=== PATIENT | male | born 1930 | race Caucasian/White ===

== ENCOUNTER 2018-02-24 21:44 | Inpatient (IN) | payer OTHER ==
[~2018-02-24] VITALS: Ht 160 cm; Wt 58.5 kg
[~2018-02-24 21:44] MED LIST: AMLODIPINE BESYL5 MG PO; APRESOLINE100 MG PO; BIOFREEZE TD; BUSPAR10 MG PO; CALCIUM 600 +1 EA11 PO; CLONIDINE HCL0.1 MG PO; CYANOCOBALAM1000 MCG PO; DULCOLAX10 MG PR; DUONEB 2.5-0.5 M3 ML AEROSOL; ELIQUIS5 MG PO; FERROUS SULFAT325 MG PO; FLEET MINERAL133 ML PR; FOLIC ACID1 MG PO; FUROSEMIDE20 MG PO; GLUCAGEN1 MG IM; GLUCOSE GEL15 GM PO; HUMULIN N100 UNITS/ SC; HUMULIN R100 UNITS/ SC; KLOR-CON M2020 MEQ PO; LORAZEPAM0.5 MG PO; METOPROLOL TART25 MG PO; MILK OF MAGN PO; MULTILEX1 EACH PO; OMEPRAZOLE20 MG PO; POTASSIUM CHLO10 ME4 PO; POTASSIUM CHLO20 MEQ PO; SYNTHROID112 MCG PO; TERAZOSIN HCL1 MG PO; THIAMINE HCL50 MG PO; TRAMADOL HCL50 MG PO; TRAZODONE HCL50 MG PO; TYLENOL REGULA325 MG PO; VITAMIN D31000 UNI2 PO; ZOFRAN4 MG PO
[2018-02-24 22:30] LABS: HEMATOCRIT 41.3 % (38.0-50.0); HEMOGLOBIN 13.9 G/DL (12.5-16.6); MCH 27.1 PG (29.0-34.0); MCHC 33.7 G/DL (30.0-36.0); MCV 80.7 FL (86-99); PLATELET COUNT 332 K/uL (156-360); RBC DIS.WIDTH-CV 14.6 % (11.8-14.6); RBC DIS.WIDTH-SD 42.2 % (39-53); RED BLOOD COUNT 5.12 M/uL (4.00-5.50); WHITE BLOOD COUNT 28.1 K/uL (4.1-10.2)
[2018-02-24 22:51] LABS: ALBUMIN 3.9 G/DL (3.2-4.8); CHLORIDE 98 MEQ/L (99-109); POTASSIUM 3.6 MEQ/L (3.7-5.4); SODIUM 138 MEQ/L (136-147); TOTAL BILIRUBIN 0.5 MG/DL (0.0-1.0)
[2018-02-24 22:52] LABS: INTER. NORMALIZED RATIO 2.1
[2018-02-24 22:54] LABS: PTT 26.9 SEC (25-37)
[2018-02-24 22:56] LABS: ALKALINE PHOSPHATASE 69 IU/L (3-129); ALT (GPT) 8 IU/L (3-49); AST (GOT) 16 IU/L (2-34); CREATININE 1.3 MG/DL (0.6-1.3); GFR ESTIMATE (CALCULATED) 55 mL/min/ (58.99-99999); GLUCOSE 183 mg/dL (70-99); TOTAL PROTEIN 7.6 G/DL (6.4-8.3); UREA NITROGEN (BUN) 22 mg/dL (9-23)
[2018-02-24 23:05] LABS: TROP-I INTERPRETATION NEGATIVE; TROPONIN-I < 0.01 ng/mL (0.0-0.30)
[2018-02-24] MEDS ORDERED: FLOMAX0.4 MG PO (23:08)
[2018-02-24] MEDS ORDERED: GLUTOSE 1537.5 GM PO (23:09)
[2018-02-24] MEDS ORDERED: LANTUS 3 M100 UNITS1 SC (23:10)
[2018-02-24] MEDS ORDERED: NOVOLOG PE100 UNITS/ SC (23:12)
[2018-02-24] MEDS ORDERED: SENNA PLUS TAB1 EACH PO (23:13)
[2018-02-24] MEDS ORDERED: ALDACTONE25 MG PO (23:13)
[2018-02-24] MEDS ORDERED: TYLENOL REGULA325 MG PO (23:15)
[2018-02-24] MEDS ORDERED: XARELTO15 MG PO (23:15)
[2018-02-24] MEDS ORDERED: ZOLOFT25 MG PO (23:16)
[2018-02-25] VITALS (7 sets, daily range): BP systolic 90–151; BP diastolic 47–79
[2018-02-25 09:09] LABS: HEMATOCRIT 35.7 % (38.0-50.0); HEMOGLOBIN 11.6 G/DL (12.5-16.6); MCH 26.7 PG (29.0-34.0); MCHC 32.5 G/DL (30.0-36.0); MCV 82.3 FL (86-99); PLATELET COUNT 251 K/uL (156-360); RBC DIS.WIDTH-CV 14.5 % (11.8-14.6); RBC DIS.WIDTH-SD 43.5 % (39-53); RED BLOOD COUNT 4.34 M/uL (4.00-5.50); WHITE BLOOD COUNT 27.4 K/uL (4.1-10.2)
[2018-02-25 09:32] LABS: ALKALINE PHOSPHATASE 50 IU/L (3-129); ALT (GPT) 9 IU/L (3-49); AST (GOT) 19 IU/L (2-34); CHLORIDE 102 MEQ/L (99-109); CREATININE 1.1 MG/DL (0.6-1.3); GFR ESTIMATE (CALCULATED) > 59 mL/min/ (58.99-99999); GLUCOSE 141 mg/dL (70-99); POTASSIUM 3.7 MEQ/L (3.7-5.4); SODIUM 135 MEQ/L (136-147); UREA NITROGEN (BUN) 20 mg/dL (9-23)
[2018-02-25 09:35] LABS: TOTAL PROTEIN 5.7 G/DL (6.4-8.3)
[2018-02-26 05:05] VITALS: BP 109/5
[2018-02-26 05:19] LABS: HEMATOCRIT 30.9 % (38.0-50.0); MCHC 32.4 G/DL (30.0-36.0); MCV 83.5 FL (86-99); PLATELET COUNT 194 K/uL (156-360); RBC DIS.WIDTH-CV 14.5 % (11.8-14.6); RBC DIS.WIDTH-SD 43.8 % (39-53); WHITE BLOOD COUNT 12.4 K/uL (4.1-10.2)
[2018-02-26 07:38] VITALS: BP 131/63
[2018-02-26 11:41] VITALS: BP 147/63
[2018-02-26 15:27] VITALS: BP 142/62
[2018-02-26 20:29] VITALS: BP 134/63
[2018-02-26 23:53] VITALS: BP 145/69
[2018-02-27 03:33] VITALS: BP 164/75
[2018-02-27 05:31] LABS: HEMATOCRIT 32.1 % (38.0-50.0); HEMOGLOBIN 10.7 G/DL (12.5-16.6); MCH 27.1 PG (29.0-34.0); MCHC 33.3 G/DL (30.0-36.0); MCV 81.3 FL (86-99); PLATELET COUNT 209 K/uL (156-360); RBC DIS.WIDTH-CV 13.8 % (11.8-14.6); RBC DIS.WIDTH-SD 40.7 % (39-53); RED BLOOD COUNT 3.95 M/uL (4.00-5.50); WHITE BLOOD COUNT 8.1 K/uL (4.1-10.2)
[2018-02-27 06:09] LABS: ALBUMIN 2.8 G/DL (3.2-4.8); ALKALINE PHOSPHATASE 42 IU/L (3-129); ALT (GPT) 8 IU/L (3-49); AST (GOT) 20 IU/L (2-34); CHLORIDE 104 MEQ/L (99-109); GFR ESTIMATE (CALCULATED) > 59 mL/min/ (58.99-99999); SODIUM 141 MEQ/L (136-147); TOTAL PROTEIN 5.7 G/DL (6.4-8.3); UREA NITROGEN (BUN) 15 mg/dL (9-23)
[2018-02-27 06:11] LABS: GLUCOSE 100 mg/dL (70-99); TOTAL BILIRUBIN 0.6 MG/DL (0.0-1.0)
[2018-02-27 08:24] VITALS: BP 162/71
[2018-02-27 11:22] VITALS: BP 148/67
[2018-02-27 20:03] VITALS: BP 166/77
[2018-02-28 00:49] VITALS: BP 154/68
[2018-02-28 04:47] VITALS: BP 165/77
[2018-02-28 05:16] LABS: HEMATOCRIT 35.3 % (38.0-50.0); HEMOGLOBIN 11.8 G/DL (12.5-16.6); MCHC 33.4 G/DL (30.0-36.0); MCV 80.8 FL (86-99); PLATELET COUNT 223 K/uL (156-360); RBC DIS.WIDTH-CV 13.9 % (11.8-14.6); RBC DIS.WIDTH-SD 40.5 % (39-53); RED BLOOD COUNT 4.37 M/uL (4.00-5.50); WHITE BLOOD COUNT 7.6 K/uL (4.1-10.2)
[2018-02-28 06:02] LABS: ALBUMIN 3.3 G/DL (3.2-4.8); ALKALINE PHOSPHATASE 50 IU/L (3-129); ALT (GPT) 10 IU/L (3-49); AST (GOT) 19 IU/L (2-34); CHLORIDE 102 MEQ/L (99-109); CREATININE 0.9 MG/DL (0.6-1.3); GFR ESTIMATE (CALCULATED) > 59 mL/min/ (58.99-99999); GLUCOSE 122 mg/dL (70-99); POTASSIUM 3.4 MEQ/L (3.7-5.4); SODIUM 137 MEQ/L (136-147); TOTAL BILIRUBIN 0.6 MG/DL (0.0-1.0); TOTAL PROTEIN 6.5 G/DL (6.4-8.3); UREA NITROGEN (BUN) 8 mg/dL (9-23)
[2018-02-28 07:46] VITALS: BP 150/73
[2018-02-28 10:59] VITALS: BP 181/77
[2018-02-28 15:21] VITALS: BP 138/65
[2018-02-28 20:26] VITALS: BP 136/73
[2018-03-01 00:40] VITALS: BP 157/71
[2018-03-01 03:54] VITALS: BP 150/68
[2018-03-01 08:09] VITALS: BP 137/69
[2018-03-01] MEDS ORDERED: LANTUS 10100 UNITS/ SC (08:38)
[2018-03-01] MEDS ORDERED: AUGMENTIN875 MG PO (08:39)
== END 2018-03-01 12:20 | DRG 391 ==
LOC: EME → EDBD 21:44 → 4EAST 23:25 → EDOF 23:25 → 4EAST 02-25 00:17 → ENPENDDIS 03-01 → 4EAST 03-01 12:20
PROVIDERS: Emergency Medicine; Internal Medicine
DX: K52.89 Other specified noninfective gastroenteritis and colitis (principal); J69.0 Pneumonitis due to inhalation of food and vomit; K56.41 Fecal impaction; K62.6 Ulcer of anus and rectum; E87.2 Acidosis; F01.50 Vascular dementia, unspecified severity, without behavioral disturbance, psychotic disturbance, mood disturbance, and anxiety; I69.354 Hemiplegia and hemiparesis following cerebral infarction affecting left non-dominant side; I10 Essential (primary) hypertension; E11.9 Type 2 diabetes mellitus without complications; E03.9 Hypothyroidism, unspecified; E78.5 Hyperlipidemia, unspecified; K21.9 Gastro-esophageal reflux disease without esophagitis; N40.0 Benign prostatic hyperplasia without lower urinary tract symptoms; M47.812 Spondylosis without myelopathy or radiculopathy, cervical region; M25.522 Pain in left elbow; H91.90 Unspecified hearing loss, unspecified ear; F32.9 Major depressive disorder, single episode, unspecified; Z98.1 Arthrodesis status; Z86.718 Personal history of other venous thrombosis and embolism; Z79.01 Long term (current) use of anticoagulants; Z79.4 Long term (current) use of insulin
CPT/HCPCS: 71045; 73070; 74177; 80053; 81003; 83605; 83690; 84484; 85027; 85610; 85730; 86850; 86900; 86901; 87040; 92610 GN; 93005; 94799; A6214; C9113; J1200; J2270; J2543; J2765; J3370; J3480; J7030; J7050